=== PATIENT | male | born 1980 | race African-American/Black ===

== ENCOUNTER 2021-04-06 10:01 | Inpatient (IN) | payer OTHER ==
[2021-04-06 11:05] VITALS: BMI 19.5
[2021-04-06] MEDS ORDERED: NICOTINE POLACRILEX 2 MG GUM BUC PRN (11:54)
[2021-04-06] MEDS ORDERED: LORazepam 1 MG TABLET PO PRN (11:54)
[2021-04-06] MEDS ORDERED: MAG HYDROX/AL HYDROX/SIMETH 30 ML UNIT-DOSE CUP PO PRN (11:54)
[2021-04-06] MEDS ORDERED: MENTHOL/PHENOL 1 EACH UD MM PRN (11:54)
[2021-04-06] MEDS ORDERED: ACETAMINOPHEN 325 MG TABLET (FP) PO PRN ×2 (11:54)
[2021-04-06] MEDS ORDERED: BISMUTH SUBSALICYLATE 524 MG/30 ML PO PRN (11:54)
[2021-04-06] MEDS ORDERED: METHOCARBAMOL 500 MG TABLET PO PRN (11:54)
[2021-04-06] MEDS ORDERED: IBUPROFEN 400 MG TABLET (FP) PO PRN (11:54)
[2021-04-06] MEDS ORDERED: MAGNESIUM HYDROX 2400MG/30ML ORAL SUSPENSION 30 ML CUP PO PRN (11:54)
[2021-04-06] MEDS ORDERED: ONDANSETRON *ODT* 4 MG TABLET SL PRN (11:54)
[2021-04-06] MEDS ORDERED: MAGNESIUM CITRATE 300 ML BOTTLE PO PRN (11:54)
[2021-04-06] MEDS: PRENATAL VITAMINS W/ FOLIC ACID TABLET (FP) PO SCH (13:10)
[2021-04-06] MEDS: hydrOXYzine PAMOATE 25 MG CAPSULE (FP) PO SCH ×3 (13:10→22:49)
[2021-04-06] MEDS: NICOTINE 7 MG/24 HOURS TOPICAL PATCH TD SCH (13:10)
[2021-04-06 13:24] LABS: HEMATOCRIT 36.5 % (35.4-49); MCHC 32.9 g/dl (32.0-35.9); MEAN PLT VOLUME 7.5 fl (7.5-11.1); PLATELET COUNT 294 10^3/uL (134-434); RDW 15.6 % (11.9-15.9); WHITE BLOOD COUNT 6.4 K/mm3 (4.0-10.0)
[2021-04-06 13:49] LABS: CALCIUM 8.7 mg/dL (8.5-10.1)
[2021-04-06 13:50] LABS: ALBUMIN 3.8 g/dl (3.4-5.0); BLOOD UREA NITROGEN 19.1 mg/dL (7-18)
[2021-04-06 13:53] LABS: CREATININE 1.1 mg/dL (0.55-1.3)
[2021-04-06 13:54] LABS: BILIRUBIN,TOTAL 0.5 mg/dL (0.2-1); TOT PROT 7.7 g/dl (6.4-8.2)
[2021-04-06] MEDS: LORazepam 2 MG TABLET PO SCH ×2 (18:05→22:49)
[2021-04-06] MEDS: MELATONIN 5 MG TABLETS PO SCH (22:49)
[2021-04-06] MEDS: THIAMINE HCL 100 MG TABLET (FP) PO SCH (22:49)
[2021-04-07] MEDS: hydrOXYzine PAMOATE 25 MG CAPSULE (FP) PO SCH ×5 (07:11→23:13)
[2021-04-07] MEDS: LORazepam 2 MG TABLET PO SCH ×4 (07:11→23:14)
[2021-04-07] MEDS: NICOTINE 7 MG/24 HOURS TOPICAL PATCH TD SCH (10:48)
[2021-04-07] MEDS: PRENATAL VITAMINS W/ FOLIC ACID TABLET (FP) PO SCH (10:48)
[2021-04-07] MEDS: THIAMINE HCL 100 MG TABLET (FP) PO SCH (23:13)
[2021-04-07] MEDS: MELATONIN 5 MG TABLETS PO SCH (23:13)
[2021-04-08] MEDS: LORazepam 1 MG TABLET PO SCH ×4 (06:47→22:36)
[2021-04-08] MEDS: hydrOXYzine PAMOATE 25 MG CAPSULE (FP) PO SCH ×5 (06:48→22:41)
[2021-04-08] MEDS: PRENATAL VITAMINS W/ FOLIC ACID TABLET (FP) PO SCH (10:11)
[2021-04-08] MEDS: NICOTINE 7 MG/24 HOURS TOPICAL PATCH TD SCH (10:11)
[2021-04-08] MEDS: MELATONIN 5 MG TABLETS PO SCH (22:40)
[2021-04-08] MEDS: THIAMINE HCL 100 MG TABLET (FP) PO SCH (22:40)
[2021-04-09] MEDS ORDERED: LORazepam 0.5 MG TABLET PO PRN
[2021-04-09] MEDS: LORazepam 0.5 MG TABLET PO SCH ×4 (07:55→22:55)
[2021-04-09] MEDS: hydrOXYzine PAMOATE 25 MG CAPSULE (FP) PO SCH ×5 (07:57→22:55)
[2021-04-09] MEDS: NICOTINE 7 MG/24 HOURS TOPICAL PATCH TD SCH (11:14)
[2021-04-09] MEDS: PRENATAL VITAMINS W/ FOLIC ACID TABLET (FP) PO SCH (11:15)
[2021-04-09 12:08] LABS: SARS-CoV-2 NAA Not Detected (Not Detected)
[2021-04-09] MEDS: MELATONIN 5 MG TABLETS PO SCH (22:55)
[2021-04-09] MEDS: THIAMINE HCL 100 MG TABLET (FP) PO SCH (22:55)
[2021-04-10] MEDS ORDERED: LORazepam 0.5 MG TABLET PO ONE (05:00)
[2021-04-10] MEDS: hydrOXYzine PAMOATE 25 MG CAPSULE (FP) PO SCH (08:06)
[2021-04-10 09:04] VITALS: BP 122/77; PULSE 61; TEMP 97.5
== END 2021-04-10 09:46 | disposition home or self-care (01) | DRG 774 ==
LOC: YASAS 10:01 → Y3N 11:44
PROVIDERS: ADMIT Allergy & Immunology; ATTEND Allergy & Immunology
PROC: HZ2ZZZZ Detoxification Services for Substance Abuse Treatment (ICD-10-PCS; principal; 2021-04-06)
DX: F10.230 Alcohol dependence with withdrawal, uncomplicated (principal); F14.20 Cocaine dependence, uncomplicated; F17.213 Nicotine dependence, cigarettes, with withdrawal; F19.24 Other psychoactive substance dependence with psychoactive substance-induced mood disorder; F32.9 Major depressive disorder, single episode, unspecified; Z88.8 Allergy status to other drugs, medicaments and biological substances; Z59.0 Homelessness
CPT/HCPCS: 36415; 80053; 85027; 86780; C9803; U0003; U0005

== ENCOUNTER 2021-08-02 11:29 | Inpatient (IN) | payer OTHER ==
[2021-08-02 12:56] VITALS: BMI 23.5
[2021-08-02] MEDS ORDERED: BISMUTH SUBSALICYLATE 262 MG/15 ML BTL PO PRN (14:28)
[2021-08-02] MEDS ORDERED: MAGNESIUM HYDROX 2400MG/30ML ORAL SUSPENSION 30 ML CUP PO PRN (14:28)
[2021-08-02] MEDS ORDERED: ONDANSETRON *ODT* 4 MG TABLET SL PRN (14:28)
[2021-08-02] MEDS ORDERED: MENTHOL/PHENOL 1 EACH UD MM PRN (14:28)
[2021-08-02] MEDS ORDERED: IBUPROFEN 400 MG TABLET (FP) PO PRN (14:28)
[2021-08-02] MEDS ORDERED: ACETAMINOPHEN 325 MG TABLET (FP) PO PRN ×2 (14:28)
[2021-08-02] MEDS ORDERED: MAG HYDROX/AL HYDROX/SIMETH 30 ML UNIT-DOSE CUP PO PRN (14:28)
[2021-08-02] MEDS ORDERED: NICOTINE 10 MG CARTRIDGE (INHALER) IH PRN (14:28)
[2021-08-02] MEDS ORDERED: METHOCARBAMOL 500 MG TABLET PO PRN (14:28)
[2021-08-02] MEDS ORDERED: MAGNESIUM CITRATE 300 ML BOTTLE PO PRN (14:28)
[2021-08-02 15:25] LABS: HEMATOCRIT 34.2 % (35.4-49); HEMOGLOBIN 11.1 GM/dL (11.7-16.9); MCH 24.9 pg (25.7-33.7); MCHC 32.5 g/dl (32.0-35.9); MEAN CELL VOLUME 76.6 fl (80-96); MEAN PLT VOLUME 7.4 fl (7.5-11.1); PLATELET COUNT 316 10^3/uL (134-434); RBC 4.46 M/mm3 (4.00-5.60); RDW 16.8 % (11.9-15.9); WHITE BLOOD COUNT 5.8 K/mm3 (4.0-10.0)
[2021-08-02 15:30] LABS: ALBUMIN 3.3 g/dl (3.4-5.0); BLOOD UREA NITROGEN 15.8 mg/dL (7-18); CALCIUM 8.8 mg/dL (8.5-10.1)
[2021-08-02 15:33] LABS: CREATININE 0.9 mg/dL (0.55-1.3)
[2021-08-02 15:35] LABS: BILIRUBIN,TOTAL 0.4 mg/dL (0.2-1); TOT PROT 6.8 g/dl (6.4-8.2)
[2021-08-02] MEDS: hydrOXYzine PAMOATE 25 MG CAPSULE (FP) PO SCH ×2 (18:02→22:48)
[2021-08-02] MEDS: MELATONIN 5 MG TABLETS PO SCH (22:48)
[2021-08-02] MEDS: THIAMINE HCL 100 MG TABLET (FP) PO SCH (22:48)
[2021-08-03] MEDS: hydrOXYzine PAMOATE 25 MG CAPSULE (FP) PO SCH ×5 (07:17→22:31)
[2021-08-03] MEDS ORDERED: diazePAM 5 MG TABLET PO PRN (10:04)
[2021-08-03] MEDS: PRENATAL VITAMINS W/ FOLIC ACID TABLET (FP) PO SCH (11:08)
[2021-08-03] MEDS: diazePAM 5 MG TABLET PO SCH ×3 (11:08→22:32)
[2021-08-03] MEDS: THIAMINE HCL 100 MG TABLET (FP) PO SCH (22:31)
[2021-08-03] MEDS: MELATONIN 5 MG TABLETS PO SCH (22:31)
[2021-08-04] MEDS: hydrOXYzine PAMOATE 25 MG CAPSULE (FP) PO SCH ×5 (06:44→22:23)
[2021-08-04] MEDS: diazePAM 5 MG TABLET PO SCH ×4 (06:44→22:23)
[2021-08-04] MEDS: PRENATAL VITAMINS W/ FOLIC ACID TABLET (FP) PO SCH (11:27)
[2021-08-04] MEDS: THIAMINE HCL 100 MG TABLET (FP) PO SCH (22:23)
[2021-08-04] MEDS: MELATONIN 5 MG TABLETS PO SCH (22:23)
[2021-08-05] MEDS: diazePAM 5 MG TABLET PO SCH ×3 (05:48→22:11)
[2021-08-05] MEDS: hydrOXYzine PAMOATE 25 MG CAPSULE (FP) PO SCH ×5 (05:48→22:10)
[2021-08-05] MEDS: PRENATAL VITAMINS W/ FOLIC ACID TABLET (FP) PO SCH (09:47)
[2021-08-05] MEDS: MELATONIN 5 MG TABLETS PO SCH (22:10)
[2021-08-05] MEDS: THIAMINE HCL 100 MG TABLET (FP) PO SCH (22:11)
[2021-08-06] MEDS ORDERED: diazePAM 5 MG TABLET PO SCH (06:00)
[2021-08-06] MEDS: hydrOXYzine PAMOATE 25 MG CAPSULE (FP) PO SCH ×2 (06:09→10:25)
[2021-08-06 10:21] VITALS: BP 118/63; PULSE 77; TEMP 98
[2021-08-06] MEDS: PRENATAL VITAMINS W/ FOLIC ACID TABLET (FP) PO SCH (10:25)
[2021-08-07] MEDS ORDERED: diazePAM 5 MG TABLET PO ONE (06:00)
== END 2021-08-06 10:26 | disposition home or self-care (01) | DRG 774 ==
LOC: YASAS 11:29 → UNDOADMIN 14:06 → Y3N 14:06
PROVIDERS: ADMIT Allergy & Immunology; ATTEND Allergy & Immunology
PROC: HZ2ZZZZ Detoxification Services for Substance Abuse Treatment (ICD-10-PCS; principal; 2021-08-02)
DX: F10.230 Alcohol dependence with withdrawal, uncomplicated (principal); F14.20 Cocaine dependence, uncomplicated; F12.10 Cannabis abuse, uncomplicated; F17.213 Nicotine dependence, cigarettes, with withdrawal; Z86.69 Personal history of other diseases of the nervous system and sense organs; Z88.8 Allergy status to other drugs, medicaments and biological substances
CPT/HCPCS: 36415; 80053; 85027; 86780; C9803; U0003; U0005

== ENCOUNTER 2021-08-31 11:13 | Inpatient (IN) | payer OTHER ==
[2021-08-31 12:25] VITALS: BMI 23.2
[2021-08-31] MEDS ORDERED: MAGNESIUM CITRATE 300 ML BOTTLE PO PRN (12:29)
[2021-08-31] MEDS ORDERED: MENTHOL/PHENOL 1 EACH UD MM PRN (12:29)
[2021-08-31] MEDS ORDERED: IBUPROFEN 400 MG TABLET (FP) PO PRN (12:29)
[2021-08-31] MEDS ORDERED: METHOCARBAMOL 500 MG TABLET PO PRN (12:29)
[2021-08-31] MEDS ORDERED: diazePAM 5 MG TABLET PO PRN (12:29)
[2021-08-31] MEDS ORDERED: MAG HYDROX/AL HYDROX/SIMETH 30 ML UNIT-DOSE CUP PO PRN (12:29)
[2021-08-31] MEDS ORDERED: NICOTINE 10 MG CARTRIDGE (INHALER) IH PRN (12:29)
[2021-08-31] MEDS ORDERED: MAGNESIUM HYDROX 2400MG/30ML ORAL SUSPENSION 30 ML CUP PO PRN (12:29)
[2021-08-31] MEDS ORDERED: ACETAMINOPHEN 325 MG TABLET (FP) PO PRN ×2 (12:29)
[2021-08-31] MEDS ORDERED: ONDANSETRON *ODT* 4 MG TABLET SL PRN (12:29)
[2021-08-31] MEDS ORDERED: BISMUTH SUBSALICYLATE 262 MG/15 ML BTL PO PRN (12:29)
[2021-08-31] MEDS: diazePAM 5 MG TABLET PO SCH ×3 (14:03→22:59)
[2021-08-31] MEDS: PRENATAL VITAMINS W/ FOLIC ACID TABLET (FP) PO SCH (14:05)
[2021-08-31] MEDS: hydrOXYzine PAMOATE 25 MG CAPSULE (FP) PO SCH ×3 (14:17→22:58)
[2021-08-31] MEDS ORDERED: NICOTINE POLACRILEX 2 MG GUM BUC PRN (14:20)
[2021-08-31] MEDS: NICOTINE 7 MG/24 HOURS TOPICAL PATCH TD SCH (14:20)
[2021-08-31] MEDS: THIAMINE HCL 100 MG TABLET (FP) PO SCH (22:58)
[2021-08-31] MEDS: MELATONIN 5 MG TABLETS PO SCH (22:58)
[2021-09-01] MEDS: hydrOXYzine PAMOATE 25 MG CAPSULE (FP) PO SCH ×5 (06:47→22:26)
[2021-09-01] MEDS: diazePAM 5 MG TABLET PO SCH ×4 (06:47→22:26)
[2021-09-01] MEDS: PRENATAL VITAMINS W/ FOLIC ACID TABLET (FP) PO SCH (11:13)
[2021-09-01] MEDS: NICOTINE 7 MG/24 HOURS TOPICAL PATCH TD SCH (11:13)
[2021-09-01] MEDS: THIAMINE HCL 100 MG TABLET (FP) PO SCH (22:25)
[2021-09-01] MEDS: MELATONIN 5 MG TABLETS PO SCH (22:37)
[2021-09-02] MEDS: diazePAM 5 MG TABLET PO SCH ×3 (06:11→22:37)
[2021-09-02] MEDS: hydrOXYzine PAMOATE 25 MG CAPSULE (FP) PO SCH ×5 (06:12→22:36)
[2021-09-02] MEDS: NICOTINE 7 MG/24 HOURS TOPICAL PATCH TD SCH (10:35)
[2021-09-02] MEDS: PRENATAL VITAMINS W/ FOLIC ACID TABLET (FP) PO SCH (10:35)
[2021-09-02 11:02] LABS: HEMATOCRIT 39.3 % (35.4-49); HEMOGLOBIN 12.6 GM/dL (11.7-16.9); MEAN CELL VOLUME 78.2 fl (80-96); MEAN PLT VOLUME 7.7 fl (7.5-11.1); PLATELET COUNT 329 10^3/uL (134-434); RBC 5.02 M/mm3 (4.00-5.60); RDW 16.1 % (11.9-15.9); WHITE BLOOD COUNT 6.9 K/mm3 (4.0-10.0)
[2021-09-02 13:30] LABS: ALBUMIN 3.6 g/dl (3.4-5.0); BILIRUBIN,TOTAL 0.3 mg/dL (0.2-1); BLOOD UREA NITROGEN 15.4 mg/dL (7-18); TOT PROT 7.3 g/dl (6.4-8.2)
[2021-09-02] MEDS: MELATONIN 5 MG TABLETS PO SCH (22:35)
[2021-09-02] MEDS: THIAMINE HCL 100 MG TABLET (FP) PO SCH (22:36)
[2021-09-03] MEDS: hydrOXYzine PAMOATE 25 MG CAPSULE (FP) PO SCH ×5 (07:38→22:33)
[2021-09-03] MEDS: diazePAM 5 MG TABLET PO SCH ×2 (07:38→18:14)
[2021-09-03] MEDS: NICOTINE 7 MG/24 HOURS TOPICAL PATCH TD SCH (10:29)
[2021-09-03] MEDS: PRENATAL VITAMINS W/ FOLIC ACID TABLET (FP) PO SCH (10:29)
[2021-09-03] MEDS: MELATONIN 5 MG TABLETS PO SCH (22:33)
[2021-09-03] MEDS: THIAMINE HCL 100 MG TABLET (FP) PO SCH (22:33)
[2021-09-04] MEDS ORDERED: diazePAM 5 MG TABLET PO ONE (06:00)
[2021-09-04] MEDS: hydrOXYzine PAMOATE 25 MG CAPSULE (FP) PO SCH ×2 (06:53→11:29)
[2021-09-04 09:13] VITALS: BP 120/76; PULSE 97; TEMP 97.3
[2021-09-04] MEDS: NICOTINE 7 MG/24 HOURS TOPICAL PATCH TD SCH (11:29)
[2021-09-04] MEDS: PRENATAL VITAMINS W/ FOLIC ACID TABLET (FP) PO SCH (11:29)
== END 2021-09-04 11:52 | disposition home or self-care (01) | DRG 774 ==
LOC: YASAS 11:13 → Y3N 12:56
PROVIDERS: ADMIT Allergy & Immunology; ATTEND Allergy & Immunology
PROC: HZ2ZZZZ Detoxification Services for Substance Abuse Treatment (ICD-10-PCS; principal; 2021-08-31)
DX: F10.230 Alcohol dependence with withdrawal, uncomplicated (principal); F14.20 Cocaine dependence, uncomplicated; F12.20 Cannabis dependence, uncomplicated; F17.213 Nicotine dependence, cigarettes, with withdrawal; F19.24 Other psychoactive substance dependence with psychoactive substance-induced mood disorder; Z88.8 Allergy status to other drugs, medicaments and biological substances; Z56.0 Unemployment, unspecified; Z59.00 Homelessness unspecified
CPT/HCPCS: 36415; 80053; 85027; 86780; C9803; U0003; U0005

== ENCOUNTER 2022-01-11 13:43 | Inpatient (IN) | payer OTHER ==
[2022-01-11] MEDS ORDERED: chlordiazePOXIDE HCL 25 MG CAPSULE PO PRN (15:26)
[2022-01-11] MEDS ORDERED: MAG HYDROX/AL HYDROX/SIMETH 30 ML UNIT-DOSE CUP PO PRN (15:26)
[2022-01-11] MEDS ORDERED: BISMUTH SUBSALICYLATE 524 MG/30 ML PO PRN (15:26)
[2022-01-11] MEDS ORDERED: NICOTINE 10 MG CARTRIDGE (INHALER) IH PRN (15:26)
[2022-01-11] MEDS ORDERED: MAGNESIUM HYDROX 2400MG/30ML ORAL SUSPENSION 30 ML CUP PO PRN (15:26)
[2022-01-11] MEDS ORDERED: MAGNESIUM CITRATE 300 ML BOTTLE PO PRN (15:26)
[2022-01-11] MEDS ORDERED: LOPERAMIDE HCL 2 MG CAPSULE PO PRN (15:26)
[2022-01-11] MEDS ORDERED: DICYCLOMINE HCL 10 MG CAPSULE PO PRN (15:26)
[2022-01-11] MEDS ORDERED: ONDANSETRON *ODT* 4 MG TABLET SL PRN (15:26)
[2022-01-11] MEDS ORDERED: ACETAMINOPHEN 325 MG TABLET (FP) PO PRN ×2 (15:26)
[2022-01-11] MEDS ORDERED: MENTHOL/PHENOL 1 EACH UD MM PRN (15:26)
[2022-01-11] MEDS ORDERED: METHOCARBAMOL 500 MG TABLET PO PRN (15:26)
[2022-01-11] MEDS ORDERED: IBUPROFEN 400 MG TABLET (FP) PO PRN (15:26)
[2022-01-11 16:01] VITALS: BMI 23.9
[2022-01-11] MEDS: chlordiazePOXIDE HCL 25 MG CAPSULE PO SCH ×2 (19:32→22:25)
[2022-01-11] MEDS: hydrOXYzine PAMOATE 25 MG CAPSULE (FP) PO SCH ×2 (19:33→22:51)
[2022-01-11] MEDS: THIAMINE HCL 100 MG TABLET (FP) PO SCH (22:25)
[2022-01-11] MEDS: MELATONIN 5 MG TABLETS PO SCH (22:51)
[2022-01-12] MEDS: hydrOXYzine PAMOATE 25 MG CAPSULE (FP) PO SCH ×5 (06:00→22:19)
[2022-01-12] MEDS: chlordiazePOXIDE HCL 25 MG CAPSULE PO SCH ×4 (06:00→22:18)
[2022-01-12] MEDS: PRENATAL VITAMINS W/ FOLIC ACID TABLET (FP) PO SCH (10:49)
[2022-01-12 12:16] LABS: BLOOD UREA NITROGEN 13.9 mg/dL (7-18)
[2022-01-12 12:17] LABS: ALBUMIN 3.6 g/dl (3.4-5.0)
[2022-01-12 12:19] LABS: CREATININE 1.1 mg/dL (0.55-1.3); HEMATOCRIT 38.6 % (35.4-49); HEMOGLOBIN 12.3 GM/dL (11.7-16.9); MCH 24.6 pg (25.7-33.7); MEAN CELL VOLUME 76.9 fl (80-96); MEAN PLT VOLUME 7.6 fl (7.5-11.1); PLATELET COUNT 365 10^3/uL (134-434); RBC 5.01 M/mm3 (4.00-5.60); RDW 16.1 % (11.9-15.9); WHITE BLOOD COUNT 6.5 K/mm3 (4.0-10.0)
[2022-01-12 12:23] LABS: BILIRUBIN,TOTAL 0.5 mg/dL (0.2-1); TOT PROT 7.4 g/dl (6.4-8.2)
[2022-01-12 14:08] LABS: SARS-CoV-2 NAA Not Detected (Not Detected)
[2022-01-12] MEDS: THIAMINE HCL 100 MG TABLET (FP) PO SCH (22:18)
[2022-01-12] MEDS: MELATONIN 5 MG TABLETS PO SCH (22:19)
[2022-01-13 06:04] VITALS: BP 109/64; PULSE 87; TEMP 97.7
[2022-01-13] MEDS: hydrOXYzine PAMOATE 25 MG CAPSULE (FP) PO SCH ×3 (06:32→14:21)
[2022-01-13] MEDS: chlordiazePOXIDE HCL 25 MG CAPSULE PO SCH ×2 (06:33→12:00)
[2022-01-13] MEDS: PRENATAL VITAMINS W/ FOLIC ACID TABLET (FP) PO SCH (11:59)
[2022-01-14] MEDS ORDERED: chlordiazePOXIDE HCL 10 MG CAPSULE PO PRN
[2022-01-14] MEDS ORDERED: chlordiazePOXIDE HCL 10 MG CAPSULE PO SCH (05:00)
[2022-01-15] MEDS ORDERED: chlordiazePOXIDE HCL 10 MG CAPSULE PO SCH (05:00)
[2022-01-16] MEDS ORDERED: chlordiazePOXIDE HCL 10 MG CAPSULE PO ONE (05:00)
== END 2022-01-13 16:45 | disposition left against medical advice (07) | DRG 770 ==
LOC: YASAS 13:43 → Y6N 18:49
PROVIDERS: ADMIT Allergy & Immunology; ATTEND Allergy & Immunology
PROC: HZ2ZZZZ Detoxification Services for Substance Abuse Treatment (ICD-10-PCS; principal; 2022-01-11)
DX: F10.230 Alcohol dependence with withdrawal, uncomplicated (principal); F14.20 Cocaine dependence, uncomplicated; F12.20 Cannabis dependence, uncomplicated; F17.210 Nicotine dependence, cigarettes, uncomplicated; F19.24 Other psychoactive substance dependence with psychoactive substance-induced mood disorder; F39 Unspecified mood [affective] disorder; F41.9 Anxiety disorder, unspecified; F32.A Depression, unspecified; F60.2 Antisocial personality disorder; Z88.8 Allergy status to other drugs, medicaments and biological substances
CPT/HCPCS: 36415; 80053; 85027; 86780; C9803-CS; U0003; U0005

== ENCOUNTER 2022-06-29 19:45 | Inpatient (IN) | payer OTHER ==
[2022-06-29 20:21] VITALS: BMI 23.6
[2022-06-29] MEDS ORDERED: NALOXONE HCL (KLOXXADO) 8 MG SPRAY NS PRN (20:58)
[2022-06-29] MEDS ORDERED: BISMUTH SUBSALICYLATE 524 MG/30 ML PO PRN (20:58)
[2022-06-29] MEDS ORDERED: ACETAMINOPHEN 325 MG TABLET (FP) PO PRN ×2 (20:58)
[2022-06-29] MEDS ORDERED: IBUPROFEN 400 MG TABLET (FP) PO PRN (20:58)
[2022-06-29] MEDS ORDERED: MAGNESIUM HYDROX 2400MG/30ML ORAL SUSPENSION 30 ML CUP PO PRN (20:58)
[2022-06-29] MEDS ORDERED: DICYCLOMINE HCL 10 MG CAPSULE PO PRN (20:58)
[2022-06-29] MEDS ORDERED: guaiFENesin 200 MG/10 ML 10 ML UNIT-DOSE CUPS PO PRN (20:58)
[2022-06-29] MEDS ORDERED: MAGNESIUM CITRATE 300 ML BOTTLE PO PRN (20:58)
[2022-06-29] MEDS ORDERED: BENZOCAINE/MENTHOL (CHLORASEPTIC ) LOZENGE MM PRN (20:58)
[2022-06-29] MEDS ORDERED: LOPERAMIDE HCL 2 MG CAPSULE PO PRN (20:58)
[2022-06-29] MEDS ORDERED: P-EPHED 60MG/TRIPROLIDI 2.5MG TABLET PO PRN (20:58)
[2022-06-29] MEDS ORDERED: METHOCARBAMOL 500 MG TABLET PO PRN (20:58)
[2022-06-29] MEDS ORDERED: IBUPROFEN 600 MG TABLET (FP) PO PRN (20:58)
[2022-06-29] MEDS ORDERED: hydrOXYzine PAMOATE 25 MG CAPSULE (FP) PO PRN (20:58)
[2022-06-29] MEDS ORDERED: NICOTINE POLACRILEX 2 MG GUM BUC PRN (20:58)
[2022-06-29] MEDS ORDERED: MAG HYDROX/AL HYDROX/SIMETH 30 ML UNIT-DOSE CUP PO PRN (20:58)
[2022-06-29] MEDS ORDERED: ONDANSETRON *ODT* 4 MG TABLET SL PRN (20:58)
[2022-06-29] MEDS ORDERED: BACITRACIN 0.9 GM PACKET TP ONE (21:02)
[2022-06-29] MEDS ORDERED: MELATONIN 5 MG TABLETS PO SCH (22:00)
[2022-06-29] MEDS ORDERED: THIAMINE HCL 100 MG TABLET (FP) PO SCH (22:00)
[2022-06-29] MEDS: SULFAMETHOXAZOLE/TRIMETHOPRIM 800MG/160MG D.S. TABLET PO SCH (23:10)
[2022-06-30] MEDS ORDERED: NICOTINE 14 MG/24 HOURS TOPICAL PATCH TD SCH (10:00)
[2022-06-30] MEDS: SULFAMETHOXAZOLE/TRIMETHOPRIM 800MG/160MG D.S. TABLET PO SCH (10:00)
[2022-06-30] MEDS ORDERED: PRENATAL VITAMINS W/ FOLIC ACID TABLET (FP) PO SCH (10:00)
[2022-06-30 10:42] LABS: HEMATOCRIT 31.8 % (35.4-49); HEMOGLOBIN 10.9 GM/dL (11.7-16.9); MCH 25.3 pg (25.7-33.7); MCHC 34.3 g/dl (32.0-35.9); MEAN PLT VOLUME 7.6 fl (7.5-11.1); PLATELET COUNT 283 10^3/uL (134-434); RDW 15.1 % (11.9-15.9); WHITE BLOOD COUNT 11.5 K/mm3 (4.0-10.0)
[2022-06-30 10:45] LABS: CALCIUM 8.7 mg/dL (8.5-10.1)
[2022-06-30 10:46] LABS: BLOOD UREA NITROGEN 8.8 mg/dL (7-18)
[2022-06-30 10:48] LABS: CREATININE 0.9 mg/dL (0.55-1.3)
[2022-06-30 10:50] LABS: BILIRUBIN,TOTAL 0.3 mg/dL (0.2-1); TOT PROT 7.2 g/dl (6.4-8.2)
[2022-06-30 11:40] LABS: HIV INTERPRETATION NEGATIVE (NEGATIVE)
[2022-06-30 17:02] VITALS: BP 112/68; PULSE 88; RESP 19; TEMP 97.1
== END 2022-06-30 20:39 | disposition other institution (70) | DRG 774 ==
LOC: YASAS 19:45 → Y3N 21:34
PROVIDERS: ADMIT Allergy & Immunology; ATTEND Surgery
PROC: HZ2ZZZZ Detoxification Services for Substance Abuse Treatment (ICD-10-PCS; principal; 2022-06-29)
DX: F10.230 Alcohol dependence with withdrawal, uncomplicated (principal); F14.20 Cocaine dependence, uncomplicated; F12.20 Cannabis dependence, uncomplicated; F17.210 Nicotine dependence, cigarettes, uncomplicated; F19.24 Other psychoactive substance dependence with psychoactive substance-induced mood disorder; L03.114 Cellulitis of left upper limb; Z28.310 Unvaccinated for COVID-19; Z28.9 Immunization not carried out for unspecified reason; Z59.00 Homelessness unspecified; Z56.0 Unemployment, unspecified
CPT/HCPCS: 36415; 73070-TC-LT-FY; 80053; 85027; 86780; 87389; C9803-CS; U0003; U0005

== ENCOUNTER 2022-06-30 20:48 | Inpatient (IN) | payer OTHER ==
[2022-07-01] MEDS ORDERED: guaiFENesin 200 MG/10 ML 10 ML UNIT-DOSE CUPS PO PRN (02:42)
[2022-07-01] MEDS ORDERED: BENZOCAINE/MENTHOL (CHLORASEPTIC ) LOZENGE MM PRN (02:42)
[2022-07-01] MEDS ORDERED: MAGNESIUM CITRATE 300 ML BOTTLE PO PRN (02:42)
[2022-07-01] MEDS ORDERED: NICOTINE POLACRILEX 2 MG GUM BUC PRN (02:42)
[2022-07-01] MEDS ORDERED: MAGNESIUM HYDROX 2400MG/30ML ORAL SUSPENSION 30 ML CUP PO PRN (02:42)
[2022-07-01] MEDS ORDERED: P-EPHED 60MG/TRIPROLIDI 2.5MG TABLET PO PRN (02:42)
[2022-07-01] MEDS ORDERED: MAG HYDROX/AL HYDROX/SIMETH 30 ML UNIT-DOSE CUP PO PRN (02:42)
[2022-07-01] MEDS ORDERED: LOPERAMIDE HCL 2 MG CAPSULE PO PRN (02:42)
[2022-07-01 06:35] VITALS: TEMP 97.5
[2022-07-01] MEDS: NICOTINE 14 MG/24 HOURS TOPICAL PATCH TD SCH (10:02)
[2022-07-01] MEDS: PRENATAL VITAMINS W/ FOLIC ACID TABLET (FP) PO SCH (10:02)
[2022-07-01] MEDS: SULFAMETHOXAZOLE/TRIMETHOPRIM 800MG/160MG D.S. TABLET PO SCH ×2 (12:18→21:16)
[2022-07-01] MEDS: THIAMINE HCL 100 MG TABLET (FP) PO SCH (21:16)
[2022-07-01] MEDS: MELATONIN 5 MG TABLETS PO SCH (21:16)
[2022-07-02 06:45] VITALS: BP 124/85; PULSE 83; RESP 18
[2022-07-02] MEDS: NICOTINE 14 MG/24 HOURS TOPICAL PATCH TD SCH (10:08)
[2022-07-02] MEDS: PRENATAL VITAMINS W/ FOLIC ACID TABLET (FP) PO SCH (10:08)
[2022-07-02] MEDS: SULFAMETHOXAZOLE/TRIMETHOPRIM 800MG/160MG D.S. TABLET PO SCH ×2 (10:08→21:26)
[2022-07-02] MEDS: IBUPROFEN 400 MG TABLET (FP) PO PRN (11:34)
[2022-07-02] MEDS ORDERED: NICOTINE 10 MG CARTRIDGE (INHALER) IH SCH (12:15)
[2022-07-02] MEDS: ACETAMINOPHEN 325 MG TABLET (FP) PO PRN (13:43)
[2022-07-02] MEDS: MELATONIN 5 MG TABLETS PO SCH (21:26)
[2022-07-02] MEDS: THIAMINE HCL 100 MG TABLET (FP) PO SCH (21:26)
[2022-07-03] MEDS: ACETAMINOPHEN 325 MG TABLET (FP) PO PRN (00:07)
[2022-07-03] MEDS: IBUPROFEN 400 MG TABLET (FP) PO PRN (00:49)
== END 2022-07-03 09:18 | disposition left against medical advice (07) | DRG 770 ==
LOC: YASAS 20:48 → Y3E 20:50
PROVIDERS: ADMIT Allergy & Immunology; ATTEND Surgery
PROC: HZ42ZZZ Group Counseling for Substance Abuse Treatment, Cognitive-Behavioral (ICD-10-PCS; principal; 2022-06-30)
DX: F10.20 Alcohol dependence, uncomplicated (principal); F14.20 Cocaine dependence, uncomplicated; F12.20 Cannabis dependence, uncomplicated; F17.210 Nicotine dependence, cigarettes, uncomplicated; F19.24 Other psychoactive substance dependence with psychoactive substance-induced mood disorder; L03.114 Cellulitis of left upper limb; Z88.8 Allergy status to other drugs, medicaments and biological substances; Z59.00 Homelessness unspecified

== ENCOUNTER 2022-10-11 10:21 | Inpatient (IN) | payer OTHER ==
[2022-10-11 11:11] VITALS: BMI 24.3
[2022-10-11] MEDS ORDERED: hydrOXYzine PAMOATE 25 MG CAPSULE (FP) PO PRN (11:50)
[2022-10-11] MEDS ORDERED: MAGNESIUM HYDROX 2400MG/30ML ORAL SUSPENSION 30 ML CUP PO PRN (11:50)
[2022-10-11] MEDS ORDERED: IBUPROFEN 600 MG TABLET (FP) PO PRN (11:50)
[2022-10-11] MEDS ORDERED: NALOXONE HCL (KLOXXADO) 8 MG SPRAY NS PRN (11:50)
[2022-10-11] MEDS ORDERED: DICYCLOMINE HCL 10 MG CAPSULE PO PRN (11:50)
[2022-10-11] MEDS ORDERED: POLYETHYLENE GLYCOL (HEALTHYLAX) 3350 17 GM PACKET PO PRN (11:50)
[2022-10-11] MEDS ORDERED: IBUPROFEN 400 MG TABLET (FP) PO PRN (11:50)
[2022-10-11] MEDS ORDERED: NICOTINE 10 MG CARTRIDGE (INHALER) IH PRN (11:50)
[2022-10-11] MEDS ORDERED: METHOCARBAMOL 500 MG TABLET PO PRN (11:50)
[2022-10-11] MEDS ORDERED: ONDANSETRON *ODT* 4 MG TABLET SL PRN (11:50)
[2022-10-11] MEDS ORDERED: MAG HYDROX/AL HYDROX/SIMETH 30 ML UNIT-DOSE CUP PO PRN (11:50)
[2022-10-11] MEDS ORDERED: BISMUTH SUBSALICYLATE 262 MG/15 ML BTL PO PRN (11:50)
[2022-10-11] MEDS ORDERED: ACETAMINOPHEN 325 MG TABLET (FP) PO PRN ×2 (11:50)
[2022-10-11] MEDS ORDERED: LOPERAMIDE HCL 2 MG CAPSULE PO PRN (11:50)
[2022-10-11 14:50] LABS: HEMATOCRIT 33.8 % (35.4-49); HEMOGLOBIN 10.9 GM/dL (11.7-16.9); MCH 24.3 pg (25.7-33.7); MCHC 32.4 g/dl (32.0-35.9); MEAN CELL VOLUME 75.1 fl (80-96); MEAN PLT VOLUME 7.5 fl (7.5-11.1); PLATELET COUNT 353 10^3/uL (134-434); RDW 15.9 % (11.9-15.9); WHITE BLOOD COUNT 6.5 K/mm3 (4.0-10.0)
[2022-10-11 16:06] LABS: ALBUMIN 3.6 g/dl (3.4-5.0); BLOOD UREA NITROGEN 13.8 mg/dL (7-18); CALCIUM 9.1 mg/dL (8.5-10.1)
[2022-10-11 16:10] LABS: CREATININE 0.9 mg/dL (0.55-1.3)
[2022-10-11 16:11] LABS: TOT PROT 7.6 g/dl (6.4-8.2)
[2022-10-11 16:13] LABS: BILIRUBIN,TOTAL 1.3 mg/dL (0.2-1)
[2022-10-11] MEDS: THIAMINE HCL 100 MG TABLET (FP) PO SCH (22:02)
[2022-10-11] MEDS: MELATONIN 5 MG TABLETS PO SCH (22:25)
[2022-10-12] MEDS: PRENATAL VITAMINS W/ FOLIC ACID TABLET (FP) PO SCH (10:26)
[2022-10-12] MEDS: POTASSIUM CHLORIDE ORAL LIQUID 20 MEQ/15 ML PO SCH ×2 (10:26→23:07)
[2022-10-12] MEDS: BENZOCAINE/MENTHOL (CHLORASEPTIC ) LOZENGE MM PRN (17:37)
[2022-10-12] MEDS: THIAMINE HCL 100 MG TABLET (FP) PO SCH (23:07)
[2022-10-12] MEDS: MELATONIN 5 MG TABLETS PO SCH (23:54)
[2022-10-13] MEDS: BENZOCAINE/MENTHOL (CHLORASEPTIC ) LOZENGE MM PRN (06:51)
[2022-10-13 09:23] VITALS: BP 118/87; PULSE 82; RESP 17; TEMP 97.5
[2022-10-13] MEDS: POTASSIUM CHLORIDE ORAL LIQUID 20 MEQ/15 ML PO SCH (11:07)
[2022-10-13] MEDS: PRENATAL VITAMINS W/ FOLIC ACID TABLET (FP) PO SCH (11:08)
== END 2022-10-13 11:40 | disposition home or self-care (01) | DRG 774 ==
LOC: YASAS 10:21 → Y6N 12:04
PROVIDERS: ADMIT Allergy & Immunology; ATTEND Surgery
PROC: HZ2ZZZZ Detoxification Services for Substance Abuse Treatment (ICD-10-PCS; principal; 2022-10-11)
DX: F10.230 Alcohol dependence with withdrawal, uncomplicated (principal); F14.20 Cocaine dependence, uncomplicated; F12.20 Cannabis dependence, uncomplicated; F17.210 Nicotine dependence, cigarettes, uncomplicated; F39 Unspecified mood [affective] disorder; F60.2 Antisocial personality disorder; E87.6 Hypokalemia; R73.9 Hyperglycemia, unspecified; Z28.310 Unvaccinated for COVID-19; Z28.21 Immunization not carried out because of patient refusal; Z88.8 Allergy status to other drugs, medicaments and biological substances
CPT/HCPCS: 36415; 80053; 83036; 85027; 86780; 93005; 93010; C9803-CS; U0003; U0005

== ENCOUNTER 2022-12-26 10:09 | Inpatient (IN) | payer OTHER ==
[2022-12-26 10:35] VITALS: BMI 23.6
[2022-12-26] MEDS ORDERED: NICOTINE 10 MG CARTRIDGE (INHALER) IH PRN (11:14)
[2022-12-26] MEDS ORDERED: ONDANSETRON *ODT* 4 MG TABLET SL PRN (11:14)
[2022-12-26] MEDS ORDERED: POLYETHYLENE GLYCOL (HEALTHYLAX) 3350 17 GM PACKET PO PRN (11:14)
[2022-12-26] MEDS ORDERED: DICYCLOMINE HCL 10 MG CAPSULE PO PRN (11:14)
[2022-12-26] MEDS ORDERED: BENZOCAINE/MENTHOL (CHLORASEPTIC ) LOZENGE MM PRN (11:14)
[2022-12-26] MEDS ORDERED: IBUPROFEN 400 MG TABLET (FP) PO PRN (11:14)
[2022-12-26] MEDS ORDERED: MAG HYDROX/AL HYDROX/SIMETH 30 ML UNIT-DOSE CUP PO PRN (11:14)
[2022-12-26] MEDS ORDERED: BENZONATATE 200 MG CAPSULE PO PRN (11:14)
[2022-12-26] MEDS ORDERED: NICOTINE 14 MG/24 HOURS TOPICAL PATCH TD PRN (11:14)
[2022-12-26] MEDS ORDERED: ACETAMINOPHEN 325 MG TABLET (FP) PO PRN (11:14)
[2022-12-26] MEDS ORDERED: LOPERAMIDE HCL 2 MG CAPSULE PO PRN (11:14)
[2022-12-26] MEDS ORDERED: LORazepam 1 MG TABLET PO PRN (11:14)
[2022-12-26] MEDS ORDERED: hydrOXYzine PAMOATE 25 MG CAPSULE (FP) PO PRN (11:14)
[2022-12-26] MEDS ORDERED: guaiFENesin 600 MG TABLET.ER (FP) PO PRN (11:14)
[2022-12-26] MEDS ORDERED: BISMUTH SUBSALICYLATE 262 MG/15 ML BTL PO PRN (11:14)
[2022-12-26] MEDS ORDERED: METHOCARBAMOL 500 MG TABLET PO PRN (11:14)
[2022-12-26] MEDS ORDERED: MAGNESIUM HYDROX 2400MG/30ML ORAL SUSPENSION 30 ML CUP PO PRN (11:14)
[2022-12-26] MEDS ORDERED: IBUPROFEN 600 MG TABLET (FP) PO PRN (11:14)
[2022-12-26] MEDS ORDERED: NICOTINE POLACRILEX 2 MG GUM BUC PRN (11:14)
[2022-12-26] MEDS ORDERED: ACETAMINOPHEN 325 MG TABLET (FP) ONE (11:54)
[2022-12-26 17:24] LABS: HEMATOCRIT 32.3 % (35.4-49); HEMOGLOBIN 10.7 GM/dL (11.7-16.9); MCH 24.4 pg (25.7-33.7); MCHC 33.1 g/dl (32.0-35.9); MEAN CELL VOLUME 73.7 fl (80-96); MEAN PLT VOLUME 7.4 fl (7.5-11.1); PLATELET COUNT 281 10^3/uL (134-434); RBC 4.38 M/mm3 (4.00-5.60); RDW 16.9 % (11.9-15.9)
[2022-12-26 17:38] LABS: CALCIUM 8.7 mg/dL (8.5-10.1)
[2022-12-26 17:39] LABS: BLOOD UREA NITROGEN 10.4 mg/dL (7-18)
[2022-12-26 17:40] LABS: ALBUMIN 3.6 g/dl (3.4-5.0)
[2022-12-26 17:41] LABS: CREATININE 0.9 mg/dL (0.55-1.3)
[2022-12-26 17:43] LABS: TOT PROT 7.3 g/dl (6.4-8.2)
[2022-12-26 17:47] LABS: BILIRUBIN,TOTAL 0.4 mg/dL (0.2-1)
[2022-12-26] MEDS: LORazepam 2 MG TABLET PO SCH ×2 (18:00→22:16)
[2022-12-26] MEDS: THIAMINE HCL 100 MG TABLET (FP) PO SCH (22:16)
[2022-12-26] MEDS: MELATONIN 5 MG TABLETS PO SCH (22:42)
[2022-12-27] MEDS: LORazepam 2 MG TABLET PO SCH ×4 (06:00→22:10)
[2022-12-27] MEDS: PRENATAL VITAMINS W/ FOLIC ACID TABLET (FP) PO SCH (10:59)
[2022-12-27] MEDS: THIAMINE HCL 100 MG TABLET (FP) PO SCH (22:12)
[2022-12-27] MEDS: MELATONIN 5 MG TABLETS PO SCH (23:41)
[2022-12-28] MEDS: LORazepam 1 MG TABLET PO SCH ×4 (06:00→22:32)
[2022-12-28] MEDS: PRENATAL VITAMINS W/ FOLIC ACID TABLET (FP) PO SCH (10:54)
[2022-12-28] MEDS: THIAMINE HCL 100 MG TABLET (FP) PO SCH (22:32)
[2022-12-28] MEDS: MELATONIN 5 MG TABLETS PO SCH (23:12)
[2022-12-29] MEDS: LORazepam 0.5 MG TABLET PO SCH ×4 (05:45→22:14)
[2022-12-29] MEDS: LORazepam 0.5 MG TABLET PO PRN ×2 (06:34→11:34)
[2022-12-29] MEDS: PRENATAL VITAMINS W/ FOLIC ACID TABLET (FP) PO SCH (10:46)
[2022-12-29 21:06] VITALS: RESP 16
[2022-12-29] MEDS: THIAMINE HCL 100 MG TABLET (FP) PO SCH (22:14)
[2022-12-29] MEDS: MELATONIN 5 MG TABLETS PO SCH (22:14)
[2022-12-30] MEDS ORDERED: LORazepam 0.5 MG TABLET PO ONE (05:00)
[2022-12-30 06:07] VITALS: BP 127/79; PULSE 83; TEMP 98.7
[2022-12-30] MEDS: PRENATAL VITAMINS W/ FOLIC ACID TABLET (FP) PO SCH (11:08)
== END 2022-12-30 10:55 | disposition home or self-care (01) | DRG 774 ==
LOC: YASAS 10:09 → Y6N 11:13
PROVIDERS: ADMIT Allergy & Immunology; ATTEND Surgery
PROC: HZ2ZZZZ Detoxification Services for Substance Abuse Treatment (ICD-10-PCS; principal; 2022-12-26)
DX: F10.230 Alcohol dependence with withdrawal, uncomplicated (principal); F14.20 Cocaine dependence, uncomplicated; F12.20 Cannabis dependence, uncomplicated; F17.210 Nicotine dependence, cigarettes, uncomplicated; F39 Unspecified mood [affective] disorder; F60.2 Antisocial personality disorder; Z28.310 Unvaccinated for COVID-19; Z28.9 Immunization not carried out for unspecified reason; Z88.8 Allergy status to other drugs, medicaments and biological substances
CPT/HCPCS: 36415; 80053; 83036; 85027; 86780; 87811; C9803-CS; U0003; U0005

== ENCOUNTER 2023-06-14 16:38 | Inpatient (IN) | payer OTHER ==
[2023-06-14 19:01] VITALS: BMI 22.8
[2023-06-14] MEDS ORDERED: MAGNESIUM HYDROX 2400MG/30ML ORAL SUSPENSION 30 ML CUP PO PRN (21:42)
[2023-06-14] MEDS ORDERED: NALOXONE HCL 0.4 MG/ML VIAL IM PRN (21:42)
[2023-06-14] MEDS ORDERED: BENZOCAINE/MENTHOL (CHLORASEPTIC ) LOZENGE MM PRN (21:42)
[2023-06-14] MEDS ORDERED: METHOCARBAMOL 500 MG TABLET PO PRN (21:42)
[2023-06-14] MEDS ORDERED: POLYETHYLENE GLYCOL (HEALTHYLAX) 3350 17 GM PACKET PO PRN (21:42)
[2023-06-14] MEDS ORDERED: guaiFENesin 600 MG TABLET.ER (FP) PO PRN (21:42)
[2023-06-14] MEDS ORDERED: BENZONATATE 200 MG CAPSULE PO PRN (21:42)
[2023-06-14] MEDS ORDERED: LOPERAMIDE HCL 2 MG CAPSULE PO PRN (21:42)
[2023-06-14] MEDS ORDERED: MAG HYDROX/AL HYDROX/SIMETH 30 ML UNIT-DOSE CUP PO PRN (21:42)
[2023-06-14] MEDS ORDERED: ONDANSETRON *ODT* 4 MG TABLET SL PRN (21:42)
[2023-06-14] MEDS ORDERED: BISMUTH SUBSALICYLATE 524 MG/30 ML PO PRN (21:42)
[2023-06-14] MEDS ORDERED: DICYCLOMINE HCL 10 MG CAPSULE PO PRN (21:42)
[2023-06-14] MEDS ORDERED: NICOTINE POLACRILEX 2 MG GUM BUC PRN (21:42)
[2023-06-14] MEDS ORDERED: IBUPROFEN 600 MG TABLET (FP) PO PRN (21:42)
[2023-06-14] MEDS ORDERED: NALOXONE HCL (KLOXXADO) 8 MG SPRAY NS PRN (21:42)
[2023-06-14] MEDS ORDERED: hydrOXYzine PAMOATE 25 MG CAPSULE (FP) PO PRN (21:42)
[2023-06-14] MEDS ORDERED: ACETAMINOPHEN 325 MG TABLET (FP) PO PRN (21:42)
[2023-06-14] MEDS ORDERED: IBUPROFEN 400 MG TABLET (FP) PO PRN (21:42)
[2023-06-15] MEDS: SULFAMETHOXAZOLE/TRIMETHOPRIM 800MG/160MG D.S. TABLET PO SCH ×3 (01:37→22:37)
[2023-06-15] MEDS: THIAMINE HCL 100 MG TABLET (FP) PO SCH ×2 (01:38→22:37)
[2023-06-15] MEDS: MELATONIN 5 MG TABLETS PO SCH ×2 (01:38→22:37)
[2023-06-15] MEDS: CEPHALEXIN MONOHYDRATE 500 MG CAPSULE (UD) PO SCH ×4 (01:39→17:50)
[2023-06-15] MEDS: PRENATAL VITAMINS W/ FOLIC ACID TABLET (FP) PO SCH (10:09)
[2023-06-15] MEDS: NICOTINE 14 MG/24 HOURS TOPICAL PATCH TD SCH (10:10)
[2023-06-15 11:38] LABS: POTASSIUM 4.1 mmol/L (3.5-5.1)
[2023-06-15 11:51] LABS: HEMATOCRIT 35.3 % (35.4-49); HEMOGLOBIN 11.2 GM/dL (11.7-16.9); MCH 24.7 pg (25.7-33.7); MCHC 31.8 g/dl (32.0-35.9); MEAN CELL VOLUME 77.5 fl (80-96); MEAN PLT VOLUME 7.9 fl (7.5-11.1); PLATELET COUNT 288 10^3/uL (134-434); RBC 4.55 M/mm3 (4.00-5.60); RDW 15.9 % (11.9-15.9); WHITE BLOOD COUNT 6.9 K/mm3 (4.0-10.0)
[2023-06-15 12:09] LABS: CALCIUM 8.5 mg/dL (8.5-10.1)
[2023-06-15 12:10] LABS: ALBUMIN 3.2 g/dl (3.4-5.0); BLOOD UREA NITROGEN 14.1 mg/dL (7-18)
[2023-06-15 12:13] LABS: CREATININE 0.9 mg/dL (0.55-1.3)
[2023-06-15 12:14] LABS: BILIRUBIN,TOTAL 0.6 mg/dL (0.2-1)
[2023-06-16] MEDS: CEPHALEXIN MONOHYDRATE 500 MG CAPSULE (UD) PO SCH ×3 (05:56→12:16)
[2023-06-16 10:16] VITALS: BP 144/88; PULSE 60; RESP 17; TEMP 97.3
[2023-06-16] MEDS: PRENATAL VITAMINS W/ FOLIC ACID TABLET (FP) PO SCH (10:33)
[2023-06-16] MEDS: SULFAMETHOXAZOLE/TRIMETHOPRIM 800MG/160MG D.S. TABLET PO SCH (10:33)
[2023-06-16] MEDS: NICOTINE 14 MG/24 HOURS TOPICAL PATCH TD SCH (10:35)
== END 2023-06-16 13:03 | disposition home or self-care (01) | DRG 774 ==
LOC: YASAS 16:38 → Y3N 06-15 01:27
PROVIDERS: ADMIT Allergy & Immunology; ATTEND Surgery
PROC: HZ2ZZZZ Detoxification Services for Substance Abuse Treatment (ICD-10-PCS; principal; 2023-06-15)
DX: F10.20 Alcohol dependence, uncomplicated (principal); F14.20 Cocaine dependence, uncomplicated; F12.20 Cannabis dependence, uncomplicated; F17.210 Nicotine dependence, cigarettes, uncomplicated; F41.9 Anxiety disorder, unspecified; F32.A Depression, unspecified; F60.2 Antisocial personality disorder; Z28.310 Unvaccinated for COVID-19; Z28.21 Immunization not carried out because of patient refusal
CPT/HCPCS: 36415; 80053; 85027; 86780; 87635; 87811

== ENCOUNTER 2023-08-09 13:59 | Inpatient (IN) | payer OTHER ==
[2023-08-09 16:33] VITALS: BMI 22.1
[2023-08-09] MEDS ORDERED: BENZOCAINE/MENTHOL (CHLORASEPTIC ) LOZENGE MM PRN (18:34)
[2023-08-09] MEDS ORDERED: METHOCARBAMOL 500 MG TABLET PO PRN (18:34)
[2023-08-09] MEDS ORDERED: NALOXONE HCL 0.4 MG/ML VIAL IM PRN (18:34)
[2023-08-09] MEDS ORDERED: NICOTINE POLACRILEX 4 MG GUM BUC PRN (18:34)
[2023-08-09] MEDS ORDERED: DICYCLOMINE HCL 10 MG CAPSULE PO PRN (18:34)
[2023-08-09] MEDS ORDERED: LOPERAMIDE HCL 2 MG CAPSULE PO PRN (18:34)
[2023-08-09] MEDS ORDERED: hydrOXYzine PAMOATE 25 MG CAPSULE (FP) PO PRN (18:34)
[2023-08-09] MEDS ORDERED: IBUPROFEN 400 MG TABLET (FP) PO PRN (18:34)
[2023-08-09] MEDS ORDERED: BISMUTH SUBSALICYLATE 524 MG/30 ML PO PRN (18:34)
[2023-08-09] MEDS ORDERED: ACETAMINOPHEN 325 MG TABLET (FP) PO PRN (18:34)
[2023-08-09] MEDS ORDERED: POLYETHYLENE GLYCOL (HEALTHYLAX) 3350 17 GM PACKET PO PRN (18:34)
[2023-08-09] MEDS ORDERED: MAG HYDROX/AL HYDROX/SIMETH 30 ML UNIT-DOSE CUP PO PRN (18:34)
[2023-08-09] MEDS ORDERED: IBUPROFEN 600 MG TABLET (FP) PO PRN (18:34)
[2023-08-09] MEDS ORDERED: BENZONATATE 200 MG CAPSULE PO PRN (18:34)
[2023-08-09] MEDS ORDERED: NALOXONE HCL (KLOXXADO) 8 MG SPRAY NS PRN (18:34)
[2023-08-09] MEDS ORDERED: ONDANSETRON *ODT* 4 MG TABLET SL PRN (18:34)
[2023-08-09] MEDS ORDERED: guaiFENesin 600 MG TABLET.ER (FP) PO PRN (18:34)
[2023-08-09] MEDS ORDERED: MAGNESIUM HYDROX 2400MG/30ML ORAL SUSPENSION 30 ML CUP PO PRN (18:34)
[2023-08-09] MEDS: MELATONIN 5 MG TABLETS PO SCH (22:26)
[2023-08-09] MEDS: THIAMINE HCL 100 MG TABLET (FP) PO SCH (22:26)
[2023-08-09 23:46] LABS: URINE APPEARANCE CLEAR; URINE BILIRUBIN NEGATIVE (NEGATIVE); URINE COLOR YELLOW; URINE GLUCOSE (UA) NEGATIVE (NEGATIVE); URINE KETONE TRACE (NEGATIVE); URINE LEUK ESTERASE NEGATIVE (NEGATIVE); URINE NITRITE NEGATIVE (NEGATIVE); URINE PROTEIN NEGATIVE (NEGATIVE); URINE UROBILINOGEN 0.2 mg/dL (0.2-1.0)
[2023-08-10] MEDS ORDERED: chlordiazePOXIDE HCL 25 MG CAPSULE PO PRN (09:19)
[2023-08-10] MEDS: PRENATAL VITAMINS W/ FOLIC ACID TABLET (FP) PO SCH (10:16)
[2023-08-10] MEDS: chlordiazePOXIDE HCL 25 MG CAPSULE PO SCH ×3 (10:16→22:23)
[2023-08-10 11:07] LABS: HEMATOCRIT 35.6 % (35.4-49); HEMOGLOBIN 11.3 GM/dL (11.7-16.9); MCHC 31.7 g/dl (32.0-35.9); MEAN CELL VOLUME 75.7 fl (80-96); MEAN PLT VOLUME 7.3 fl (7.5-11.1); PLATELET COUNT 405 10^3/uL (134-434); RDW 15.3 % (11.9-15.9); WHITE BLOOD COUNT 6.7 K/mm3 (4.0-10.0)
[2023-08-10 11:49] LABS: CHLORIDE 104 mmol/L (98-107); POTASSIUM 4.1 mmol/L (3.5-5.1); SODIUM 139 mmol/L (136-145)
[2023-08-10 12:13] LABS: ALBUMIN 3.2 g/dl (3.4-5.0); ANION GAP 5 mmol/L (4-13); BLOOD UREA NITROGEN 17.6 mg/dL (7-18); CALCIUM 8.9 mg/dL (8.5-10.1); CO2 30 mmol/L (21-32); GLUCOSE,RANDOM 76 mg/dL (74-106)
[2023-08-10 12:14] LABS: SGOT/AST 17 U/L (15-37)
[2023-08-10 12:17] LABS: SGPT/ALT 17 U/L (13-61)
[2023-08-10 12:18] LABS: BILIRUBIN,TOTAL 0.4 mg/dL (0.2-1); CREATININE 0.8 mg/dL (0.55-1.3)
[2023-08-10 12:19] LABS: ALK PHOS 78 U/L (45-117)
[2023-08-10] MEDS: THIAMINE HCL 100 MG TABLET (FP) PO SCH (22:23)
[2023-08-10] MEDS: MELATONIN 5 MG TABLETS PO SCH (22:25)
[2023-08-11] MEDS: chlordiazePOXIDE HCL 25 MG CAPSULE PO SCH ×2 (05:48→10:16)
[2023-08-11] MEDS: PRENATAL VITAMINS W/ FOLIC ACID TABLET (FP) PO SCH (10:16)
[2023-08-11 12:54] VITALS: BP 116/74; PULSE 75; RESP 18; TEMP 97.3
[2023-08-12] MEDS ORDERED: chlordiazePOXIDE HCL 25 MG CAPSULE PO SCH (05:00)
[2023-08-13] MEDS ORDERED: chlordiazePOXIDE HCL 10 MG CAPSULE PO PRN
[2023-08-13] MEDS ORDERED: chlordiazePOXIDE HCL 10 MG CAPSULE PO SCH (05:00)
[2023-08-14] MEDS ORDERED: chlordiazePOXIDE HCL 10 MG CAPSULE PO SCH (05:00)
[2023-08-15] MEDS ORDERED: chlordiazePOXIDE HCL 10 MG CAPSULE PO ONE (05:00)
== END 2023-08-11 16:15 | disposition left against medical advice (07) | DRG 770 ==
LOC: YASAS 13:59 → Y3N 20:02
PROVIDERS: ADMIT Allergy & Immunology; ATTEND Surgery
PROC: HZ2ZZZZ Detoxification Services for Substance Abuse Treatment (ICD-10-PCS; principal; 2023-08-09)
DX: F10.230 Alcohol dependence with withdrawal, uncomplicated (principal); F14.20 Cocaine dependence, uncomplicated; F15.20 Other stimulant dependence, uncomplicated; F12.20 Cannabis dependence, uncomplicated; F17.210 Nicotine dependence, cigarettes, uncomplicated; F41.9 Anxiety disorder, unspecified; F32.A Depression, unspecified; Z86.69 Personal history of other diseases of the nervous system and sense organs; Z88.8 Allergy status to other drugs, medicaments and biological substances; Z59.00 Homelessness unspecified
CPT/HCPCS: 36415; 80053; 80307; 81003; 85027; 86780; 87635; 87811; 93005; 93010

== ENCOUNTER 2023-08-28 10:14 | Inpatient (IN) | payer OTHER ==
[2023-08-28 10:45] VITALS: BMI 22.3
[2023-08-28] MEDS ORDERED: MAGNESIUM HYDROX 2400MG/30ML ORAL SUSPENSION 30 ML CUP PO PRN (11:23)
[2023-08-28] MEDS ORDERED: BENZOCAINE/MENTHOL (CHLORASEPTIC ) LOZENGE MM PRN (11:23)
[2023-08-28] MEDS ORDERED: BENZONATATE 200 MG CAPSULE PO PRN (11:23)
[2023-08-28] MEDS ORDERED: NALOXONE HCL 0.4 MG/ML VIAL IM PRN (11:23)
[2023-08-28] MEDS ORDERED: MAG HYDROX/AL HYDROX/SIMETH 30 ML UNIT-DOSE CUP PO PRN (11:23)
[2023-08-28] MEDS ORDERED: BISMUTH SUBSALICYLATE 262 MG/15 ML BTL PO PRN (11:23)
[2023-08-28] MEDS ORDERED: guaiFENesin 600 MG TABLET.ER (FP) PO PRN (11:23)
[2023-08-28] MEDS ORDERED: METHOCARBAMOL 500 MG TABLET PO PRN (11:23)
[2023-08-28] MEDS ORDERED: DICYCLOMINE HCL 10 MG CAPSULE PO PRN (11:23)
[2023-08-28] MEDS ORDERED: IBUPROFEN 600 MG TABLET (FP) PO PRN (11:23)
[2023-08-28] MEDS ORDERED: ACETAMINOPHEN 325 MG TABLET (FP) PO PRN (11:23)
[2023-08-28] MEDS ORDERED: POLYETHYLENE GLYCOL (HEALTHYLAX) 3350 17 GM PACKET PO PRN (11:23)
[2023-08-28] MEDS ORDERED: hydrOXYzine PAMOATE 25 MG CAPSULE (FP) PO PRN (11:23)
[2023-08-28] MEDS ORDERED: IBUPROFEN 400 MG TABLET (FP) PO PRN (11:23)
[2023-08-28] MEDS ORDERED: NALOXONE HCL (KLOXXADO) 8 MG SPRAY NS PRN (11:23)
[2023-08-28] MEDS ORDERED: LOPERAMIDE HCL 2 MG CAPSULE PO PRN (11:23)
[2023-08-28] MEDS ORDERED: ONDANSETRON *ODT* 4 MG TABLET SL PRN (11:23)
[2023-08-28] MEDS: THIAMINE HCL 100 MG TABLET (FP) PO SCH (22:18)
[2023-08-28] MEDS: MELATONIN 5 MG TABLETS PO SCH (22:18)
[2023-08-29 08:28] LABS: POTASSIUM 3.9 mmol/L (3.5-5.1)
[2023-08-29 08:33] LABS: CALCIUM 8.9 mg/dL (8.5-10.1)
[2023-08-29 08:34] LABS: ALBUMIN 3.5 g/dl (3.4-5.0); BLOOD UREA NITROGEN 14.4 mg/dL (7-18)
[2023-08-29 08:39] LABS: BILIRUBIN,TOTAL 0.4 mg/dL (0.2-1); HEMATOCRIT 36.6 % (35.4-49); HEMOGLOBIN 11.8 GM/dL (11.7-16.9); MCHC 32.2 g/dl (32.0-35.9); MEAN CELL VOLUME 74.3 fl (80-96); MEAN PLT VOLUME 7.9 fl (7.5-11.1); PLATELET COUNT 340 10^3/uL (134-434); RBC 4.92 M/mm3 (4.00-5.60); RDW 15.4 % (11.9-15.9); TOT PROT 7.5 g/dl (6.4-8.2)
[2023-08-29] MEDS: PRENATAL VITAMINS W/ FOLIC ACID TABLET (FP) PO SCH (10:18)
[2023-08-29] MEDS: NICOTINE 14 MG/24 HOURS TOPICAL PATCH TD SCH (10:18)
[2023-08-29] MEDS: NICOTINE POLACRILEX 2 MG GUM BUC PRN ×2 (10:19→22:43)
[2023-08-29 17:02] VITALS: RESP 18
[2023-08-29] MEDS: MELATONIN 5 MG TABLETS PO SCH (22:42)
[2023-08-29] MEDS: THIAMINE HCL 100 MG TABLET (FP) PO SCH (22:42)
[2023-08-30 10:22] VITALS: BP 120/72; PULSE 83; TEMP 98.2
[2023-08-30] MEDS: NICOTINE 14 MG/24 HOURS TOPICAL PATCH TD SCH (10:29)
[2023-08-30] MEDS: PRENATAL VITAMINS W/ FOLIC ACID TABLET (FP) PO SCH (10:29)
== END 2023-08-30 10:45 | disposition home or self-care (01) | DRG 774 ==
LOC: YASAS 10:14 → Y3N 11:53
PROVIDERS: ADMIT Allergy & Immunology; ATTEND Surgery
PROC: HZ2ZZZZ Detoxification Services for Substance Abuse Treatment (ICD-10-PCS; principal; 2023-08-28)
DX: F10.20 Alcohol dependence, uncomplicated (principal); F14.20 Cocaine dependence, uncomplicated; F15.20 Other stimulant dependence, uncomplicated; F12.20 Cannabis dependence, uncomplicated; F17.210 Nicotine dependence, cigarettes, uncomplicated; F60.2 Antisocial personality disorder; F41.9 Anxiety disorder, unspecified; F32.A Depression, unspecified; Z28.310 Unvaccinated for COVID-19; Z28.21 Immunization not carried out because of patient refusal; Z88.8 Allergy status to other drugs, medicaments and biological substances
CPT/HCPCS: 36415; 80053; 80307; 85027; 86780; 87635; 87811

== ENCOUNTER 2024-11-30 10:38 | Inpatient (IN) | payer OTHER ==
[2024-11-30 10:56] VITALS: BMI 28.6
[2024-11-30] MEDS ORDERED: BISMUTH SUBSALICYLATE 524 MG/30 ML PO PRN (11:08)
[2024-11-30] MEDS ORDERED: NALOXONE (NARCAN) HCL 4 MG/0.1 ML SPRAY NS PRN (11:08)
[2024-11-30] MEDS ORDERED: hydrOXYzine PAMOATE 25 MG CAPSULE (FP) PO PRN (11:08)
[2024-11-30] MEDS ORDERED: IBUPROFEN 400 MG TABLET (FP) PO PRN (11:08)
[2024-11-30] MEDS ORDERED: BENZOCAINE/MENTHOL (CHLORASEPTIC ) LOZENGE MM PRN (11:08)
[2024-11-30] MEDS ORDERED: DICYCLOMINE HCL 10 MG CAPSULE PO PRN (11:08)
[2024-11-30] MEDS ORDERED: BENZONATATE 200 MG CAPSULE PO PRN (11:08)
[2024-11-30] MEDS ORDERED: LOPERAMIDE HCL 2 MG CAPSULE PO PRN (11:08)
[2024-11-30] MEDS ORDERED: MAG HYDROX/AL HYDROX/SIMETH 30 ML UNIT-DOSE CUP PO PRN (11:08)
[2024-11-30] MEDS ORDERED: METHOCARBAMOL 500 MG TABLET PO PRN (11:08)
[2024-11-30] MEDS ORDERED: POLYETHYLENE GLYCOL (HEALTHYLAX) 3350 17 GM PACKET PO PRN (11:08)
[2024-11-30] MEDS ORDERED: IBUPROFEN 600 MG TABLET (FP) PO PRN (11:08)
[2024-11-30] MEDS ORDERED: ONDANSETRON *ODT* 4 MG TABLET SL PRN (11:08)
[2024-11-30] MEDS ORDERED: NICOTINE POLACRILEX 2 MG GUM BUC PRN (11:08)
[2024-11-30] MEDS ORDERED: MAGNESIUM HYDROX 2400MG/30ML ORAL SUSPENSION 30 ML CUP PO PRN (11:08)
[2024-11-30] MEDS ORDERED: NICOTINE POLACRILEX 2 MG LOZENGE BC PRN (11:08)
[2024-11-30] MEDS ORDERED: guaiFENesin 600 MG TABLET.ER (FP) PO PRN (11:08)
[2024-11-30] MEDS ORDERED: ACETAMINOPHEN 325 MG TABLET (FP) PO PRN (11:08)
[2024-11-30] MEDS: MELATONIN 5 MG TABLETS PO SCH (22:36)
[2024-11-30] MEDS: THIAMINE 100 MG TABLET PO SCH (22:36)
[2024-12-01] MEDS: PRENATAL VITAMINS W/ FOLIC ACID TABLET (FP) PO SCH (09:11)
[2024-12-01 11:11] LABS: HEMOGLOBIN 11.7 GM/dL (11.7-16.9); MCH 23.2 pg (25.7-33.7); MCHC 32.6 g/dl (32.0-35.9); MEAN CELL VOLUME 71.2 fl (80-96); MEAN PLT VOLUME 7.8 fl (7.5-11.1); PLATELET COUNT 305 10^3/uL (134-434); RBC 5.05 M/mm3 (4.00-5.60); RDW 16.7 % (11.9-15.9); WHITE BLOOD COUNT 6.2 K/mm3 (4.0-10.0)
[2024-12-01 11:27] LABS: CALCIUM 8.5 mg/dL (8.5-10.1)
[2024-12-01 11:28] LABS: ALBUMIN 3.2 g/dl (3.4-5.0); BLOOD UREA NITROGEN 15.6 mg/dL (7-18)
[2024-12-01 11:31] LABS: CREATININE 0.9 mg/dL (0.55-1.3)
[2024-12-01 11:32] LABS: BILIRUBIN,TOTAL 0.4 mg/dL (0.2-1)
[2024-12-01 11:33] LABS: TOT PROT 6.7 g/dl (6.4-8.2)
[2024-12-01 13:03] VITALS: BP 140/83; PULSE 64; RESP 18; TEMP 98.2
== END 2024-12-01 14:08 | disposition home or self-care (01) | DRG 774 ==
LOC: EDBD → YASAS 10:38 → Y6N 13:11
PROVIDERS: ADMIT Allergy & Immunology; ATTEND Allergy & Immunology
PROC: HZ2ZZZZ Detoxification Services for Substance Abuse Treatment (ICD-10-PCS; principal; 2024-11-30)
DX: F14.10 Cocaine abuse, uncomplicated (principal); F10.10 Alcohol abuse, uncomplicated; F15.10 Other stimulant abuse, uncomplicated; F12.10 Cannabis abuse, uncomplicated; F19.24 Other psychoactive substance dependence with psychoactive substance-induced mood disorder; F39 Unspecified mood [affective] disorder; Z87.891 Personal history of nicotine dependence; Z59.00 Homelessness unspecified; Z88.8 Allergy status to other drugs, medicaments and biological substances
CPT/HCPCS: 36415; 80053; 80305; 80307; 85027; 86780; 93005; 93010

== ENCOUNTER 2024-12-20 12:17 | Inpatient (IN) | payer OTHER ==
[2024-12-20 13:14] VITALS: BMI 28.3
[2024-12-20] MEDS ORDERED: BENZONATATE 200 MG CAPSULE PO PRN (13:47)
[2024-12-20] MEDS ORDERED: MAGNESIUM HYDROX 2400MG/30ML ORAL SUSPENSION 30 ML CUP PO PRN (13:47)
[2024-12-20] MEDS ORDERED: LOPERAMIDE HCL 2 MG CAPSULE PO PRN (13:47)
[2024-12-20] MEDS ORDERED: BISMUTH SUBSALICYLATE 524 MG/30 ML PO PRN (13:47)
[2024-12-20] MEDS ORDERED: BENZOCAINE/MENTHOL (CHLORASEPTIC ) LOZENGE MM PRN (13:47)
[2024-12-20] MEDS ORDERED: IBUPROFEN 400 MG TABLET (FP) PO PRN (13:47)
[2024-12-20] MEDS ORDERED: ACETAMINOPHEN 325 MG TABLET (FP) PO PRN (13:47)
[2024-12-20] MEDS ORDERED: POLYETHYLENE GLYCOL (HEALTHYLAX) 3350 17 GM PACKET PO PRN (13:47)
[2024-12-20] MEDS ORDERED: IBUPROFEN 600 MG TABLET (FP) PO PRN (13:47)
[2024-12-20] MEDS ORDERED: NALOXONE (NARCAN) HCL 4 MG/0.1 ML SPRAY NS PRN (13:47)
[2024-12-20] MEDS ORDERED: DICYCLOMINE HCL 10 MG CAPSULE PO PRN (13:47)
[2024-12-20] MEDS ORDERED: NICOTINE POLACRILEX 2 MG GUM BUC PRN (13:47)
[2024-12-20] MEDS ORDERED: MAG HYDROX/AL HYDROX/SIMETH 30 ML UNIT-DOSE CUP PO PRN (13:47)
[2024-12-20] MEDS ORDERED: ONDANSETRON *ODT* 4 MG TABLET SL PRN (13:47)
[2024-12-20] MEDS ORDERED: NICOTINE POLACRILEX 2 MG LOZENGE BC PRN (13:47)
[2024-12-20] MEDS ORDERED: guaiFENesin 600 MG TABLET.ER (FP) PO PRN (13:47)
[2024-12-20] MEDS: METHOCARBAMOL 500 MG TABLET PO PRN (22:25)
[2024-12-20] MEDS: MELATONIN 5 MG TABLETS PO SCH (22:25)
[2024-12-20] MEDS: hydrOXYzine PAMOATE 25 MG CAPSULE (FP) PO PRN (22:25)
[2024-12-20] MEDS: THIAMINE 100 MG TABLET PO SCH (22:25)
[2024-12-21 09:24] LABS: POTASSIUM 3.9 mmol/L (3.5-5.1)
[2024-12-21 09:31] LABS: ALBUMIN 3.4 g/dl (3.4-5.0); CALCIUM 8.8 mg/dL (8.5-10.1)
[2024-12-21 09:32] LABS: BLOOD UREA NITROGEN 15.5 mg/dL (7-18); HEMATOCRIT 36.9 % (35.4-49); MCH 23.7 pg (25.7-33.7); MCHC 32.6 g/dl (32.0-35.9); MEAN CELL VOLUME 72.7 fl (80-96); MEAN PLT VOLUME 7.3 fl (7.5-11.1); PLATELET COUNT 358 10^3/uL (134-434); RBC 5.07 M/mm3 (4.00-5.60); RDW 17.2 % (11.9-15.9); WHITE BLOOD COUNT 5.6 K/mm3 (4.0-10.0)
[2024-12-21 09:33] LABS: BILIRUBIN,TOTAL 0.4 mg/dL (0.2-1)
[2024-12-21] MEDS ORDERED: diazePAM 5 MG TABLET PO PRN (09:36)
[2024-12-21 09:39] LABS: TOT PROT 6.9 g/dl (6.4-8.2)
[2024-12-21] MEDS: PRENATAL VITAMINS W/ FOLIC ACID TABLET (FP) PO SCH (09:53)
[2024-12-21] MEDS: diazePAM 5 MG TABLET PO SCH (13:10)
[2024-12-22] MEDS: diazePAM 5 MG TABLET PO SCH ×2 (07:00→17:10)
[2024-12-22] MEDS: NALTREXONE HCL 50 MG TABLET PO ONE ×2 (17:17→17:20)
[2024-12-23] MEDS ORDERED: diazePAM 5 MG TABLET PO ONE (06:00)
[2024-12-23] MEDS: diazePAM 5 MG TABLET PO ONE (06:31)
[2024-12-23 09:16] VITALS: BP 122/59; PULSE 57; RESP 16; TEMP 97.3
[2024-12-23] MEDS: NALTREXONE HCL 50 MG TABLET PO SCH (10:16)
== END 2024-12-23 10:39 | disposition home or self-care (01) | DRG 774 ==
LOC: YASAS 12:17 → Y6N 15:10
PROVIDERS: ADMIT Neuromusculoskeletal Medicine & OMM; ATTEND Allergy & Immunology
PROC: HZ2ZZZZ Detoxification Services for Substance Abuse Treatment (ICD-10-PCS; principal; 2024-12-20)
DX: F10.230 Alcohol dependence with withdrawal, uncomplicated (principal); F14.20 Cocaine dependence, uncomplicated; F15.20 Other stimulant dependence, uncomplicated; F12.20 Cannabis dependence, uncomplicated; F17.210 Nicotine dependence, cigarettes, uncomplicated; F19.24 Other psychoactive substance dependence with psychoactive substance-induced mood disorder; F41.9 Anxiety disorder, unspecified; F32.A Depression, unspecified
CPT/HCPCS: 36415; 80053; 80305; 80307; 85027; 86780

== ENCOUNTER 2025-05-20 09:43 | Inpatient (IN) | payer OTHER ==
[2025-05-20 10:40] VITALS: BMI 26.9
[2025-05-20] MEDS ORDERED: IBUPROFEN 600 MG TABLET (FP) PO PRN (12:27)
[2025-05-20] MEDS ORDERED: MAG HYDROX/AL HYDROX/SIMETH 30 ML UNIT-DOSE CUP PO PRN (12:27)
[2025-05-20] MEDS ORDERED: NALOXONE (NARCAN) HCL 4 MG/0.1 ML SPRAY NS PRN (12:27)
[2025-05-20] MEDS ORDERED: guaiFENesin 600 MG TABLET.ER (FP) PO PRN (12:27)
[2025-05-20] MEDS ORDERED: POLYETHYLENE GLYCOL (HEALTHYLAX) 3350 17 GM PACKET PO PRN (12:27)
[2025-05-20] MEDS ORDERED: BENZONATATE 200 MG CAPSULE PO PRN (12:27)
[2025-05-20] MEDS ORDERED: ACETAMINOPHEN 325 MG TABLET (FP) PO PRN (12:27)
[2025-05-20] MEDS ORDERED: MAGNESIUM HYDROX 2400MG/30ML ORAL SUSPENSION 30 ML CUP PO PRN (12:27)
[2025-05-20] MEDS ORDERED: IBUPROFEN 400 MG TABLET (FP) PO PRN (12:27)
[2025-05-20] MEDS ORDERED: LOPERAMIDE HCL 2 MG CAPSULE PO PRN (12:27)
[2025-05-20] MEDS ORDERED: PRENATAL VITAMINS W/ FOLIC ACID TABLET (FP) PO ONE (13:25)
[2025-05-20] MEDS: PRENATAL VITAMINS W/ FOLIC ACID TABLET (FP) PO SCH (13:28)
[2025-05-20] MEDS ORDERED: TUBERCULIN PPD 5 TU/0.1ML VIAL ID ONE ×2 (15:27→15:47)
[2025-05-20] MEDS: MELATONIN 5 MG TABLETS PO SCH (21:17)
[2025-05-20] MEDS: hydrOXYzine PAMOATE 25 MG CAPSULE (FP) PO PRN (21:17)
[2025-05-20] MEDS: THIAMINE 100 MG TABLET PO SCH (21:19)
[2025-05-21] MEDS: SERTRALINE HCL 50 MG TABLET (FP) PO SCH (09:53)
[2025-05-21 12:59] LABS: MCHC 31.2 g/dl (32.3-36.5); MEAN CELL VOLUME 74.3 fl (79.0-92.2); MEAN PLT VOLUME 9.5 fl (9.4-12.4); RDW 16.7 % (12.1-15.9)
[2025-05-21 13:50] LABS: GLUCOSE,RANDOM 73.0 mg/dL (74-106); TOT PROT 7.3 g/dl (6.4-8.2)
[2025-05-21 13:51] LABS: CO2 30.0 mmol/L (21-32)
[2025-05-21 13:53] LABS: ALK PHOS 79.0 U/L (40-150)
[2025-05-21 13:55] LABS: SGOT/AST 32.0 U/L (5-34); SGPT/ALT 20.0 U/L (0-55)
[2025-05-21 13:56] LABS: CREATININE 0.93 mg/dL (0.55-1.3)
[2025-05-21 14:03] LABS: HCV DIAGNOSTIC IN-HOUSE W/RFLX NON-REACTIVE (NONREACTIVE)
[2025-05-21 14:04] LABS: SYPHILIS W/ RPR CONF NON-REACTIVE (NONREACTIVE)
[2025-05-21 17:08] LABS: URINE APPEARANCE CLOUDY; URINE BILIRUBIN NEGATIVE (NEGATIVE); URINE COLOR YELLOW; URINE GLUCOSE (UA) NEGATIVE (NEGATIVE); URINE KETONE NEGATIVE (NEGATIVE); URINE LEUK ESTERASE NEGATIVE (NEGATIVE); URINE NITRITE NEGATIVE (NEGATIVE); URINE PROTEIN NEGATIVE (NEGATIVE); URINE UROBILINOGEN 0.2 mg/dL (0.2-1.0)
[2025-05-22] MEDS: BENZOCAINE/MENTHOL (CHLORASEPTIC ) LOZENGE MM PRN (04:38)
[2025-06-02 06:55] VITALS: BP 120/85; PULSE 68; RESP 18; TEMP 97.5
== END 2025-06-02 13:05 | disposition home or self-care (01) | DRG 772 ==
LOC: YASAS 09:43 → Y5N 13:05
PROVIDERS: ADMIT Allergy & Immunology; ATTEND Psychiatry & Neurology Pain Medicine
PROC: HZ42ZZZ Group Counseling for Substance Abuse Treatment, Cognitive-Behavioral (ICD-10-PCS; principal; 2025-05-20)
DX: F10.20 Alcohol dependence, uncomplicated (principal); F14.20 Cocaine dependence, uncomplicated; F12.20 Cannabis dependence, uncomplicated; F17.210 Nicotine dependence, cigarettes, uncomplicated; F33.1 Major depressive disorder, recurrent, moderate; F19.24 Other psychoactive substance dependence with psychoactive substance-induced mood disorder; F41.8 Other specified anxiety disorders; G47.00 Insomnia, unspecified; Z59.00 Homelessness unspecified; Z88.8 Allergy status to other drugs, medicaments and biological substances
CPT/HCPCS: 36415; 80053; 80307; 81003; 85027; 86780; 86803; 93005; 93010